=== PATIENT | female | born 1965 | race Caucasian/White ===

== ENCOUNTER → 2016-06-26 | Outpatient (CLI) | payer OTHER ==
[~2016-06-26] MED LIST: ACETAMINOPHEN; FLEXERIL10 MG PO; LISINOPRIL-HCTZ1 T20; METOPROLOL SUC PO; MOTRIN600 MG PO; NAPROSYN500 MG PO; PRAVASTATIN SOD80 MG PO; PROTONIX PO; ZOLOFT PO; [UNRECOGNIZED DRUG - OTHER] PO
--- NOTE | ~2016-06-26 | MY11 ---
[facility] A Service of [facility] RADIOLOGY TEXT RESULTS PATIENT: SANDIP STEWART LOCATION: [facility] : 61 UNIT #: [id number] AGE: [address]: Wild Ramon APRN SEX: F ORDER DR: [id number] [facility]. [place], [place] [address] [id number] O MR#: [id number] Acc #: [id number] NAME: SANDIP STEWART. : 1965 SEX: F STUDY DATE/TIME: 06/26/2016 8:37 UNIT: [facility] ROOM: STUDY DESCRIPTION: MY Mammogram Screening Dig [place] Attending Physician: Wild Ramon A.P.R.N. Ordering Physician: Wild Ramon A.P.R.N. Primary Care Physician: Wild Ramon A.P.R.N. MEDICAL IMAGING REPORT This report is preliminary unless electronic signature is present EXAM Digital screening mammogram with CAD INDICATIONS Routine screening. PROCEDURE Bilateral CC and MLO views obtained on a digital mammography unit FDA-approved CAD device utilized. COMPARISON 02/19/2008 FINDINGS Scattered fibroglandular density. No dominant mass or suspicious calcification. IMPRESSION Negative screening mammogram screen interval 1 year suggested. Patients over the age of 40 are entered into a reminder system with target due date for the next mammogram. A result letter will also be sent to the patient. BIRADS: 1, negative. Dictated by... Mainor Cartagena M.D. THIS IS AN ELECTRONICALLY VERIFIED REPORT Mainor Cartagena M.D. at 07/03/2016 7:08 AM EED/rnr [facility] A Service [facility] RADIOLOGY TEXT RESULTS PATIENT: SANDIP STEWART LOCATION: [facility] : 61 UNIT #: [id number] AGE: [address]: Wild Ramon APRN SEX: F ORDER DR: TD: 07/02/2016 15:01 JOB #: [id number] MEDICAL IMAGING REPORT COPY
== END | disposition home or self-care (01) ==
LOC: CWCC 08:14
DX: Z12.31 Encounter for screening mammogram for malignant neoplasm of breast (principal)
CPT/HCPCS: G0202

== ENCOUNTER → 2016-07-12 | Day surgery (SDC) | payer OTHER ==
--- NOTE | ~2016-07-12 | OR ---
Unit #: [id number] #: [id number] Patient: SANDIP STEWART [id number] [place], [place] [address] [id number] O MR#: [id number] NAME: SANDIP STEWART ROOM: Date of Procedure: 07/12/2016 Admission Date: 07/12/2016 Surgeon: Altaf Acevedo M.D. : 1965 Attending Physician: Altaf Acevedo M.D. Primary Care Physician: Wild Ramon A.P.R.N. OPERATIVE REPORT INDICATIONS FOR PROCEDURE Esophagogastroduodenoscopy with biopsy and colonoscopy with snare polypectomy. INDICATIONS FOR PROCEDURE The patient with significant left upper quadrant pain and also 50-year-old with average risk for colorectal cancer, undergoing colonoscopy and upper endoscopy for evaluation. MEDICATIONS Monitored anesthesia. POSTOPERATIVE FINDINGS 1. Small hiatal hernia. 2. Mild esophagitis. 3. Chronic appearing gastritis, biopsies taken. 4. Normal duodenum and distal duodenum. 5. Polyp, cecum, 1 cm flat, snared piecemeal and sent for histopathology. 6. Polyp, rectosigmoid area, eight, 2 to 4 mm each, snared, and sent for histopathology together. 7. Diverticulosis. 8. Internal hemorrhoids. PLAN Repeat colonoscopy in 3 years. PPI therapy. Avoid NSAIDs. DESCRIPTION OF PROCEDURE The patient was explained of the procedure, risks, and benefits along with risks and benefits of anesthesia. She was brought to the endoscopy room. Propofol anesthesia was given. Bite block was placed. The scope was passed down the mouth into esophagus, stomach, duodenum, and distal duodenum. Biopsies were taken. The scope was gently pulled out. She tolerated it well. At this time, she was turned around and repositioned for colonoscopy. Rectal exam was done, which was normal. Colonoscope was lubricated, passed up the rectum, advanced under direct vision all the way to the cecum. Cecum was identified by ileocecal valve and appendiceal orifice. Flat polyp seen in cecum was removed piecemeal and sent for histopathology. About 8 polyps were seen in rectosigmoid area. They were also snared and sent for histopathology. Diverticulosis also noted. I retroflexed in the rectum, small hemorrhoids seen. Scope was gently Unit #: [id number] #: [id number] Patient: SANDIP STEWART pulled out. She tolerated it well. No major complications were seen. Dictated by... Rey Casey/ross TD: 07/12/2016 22:37 JOB #: [id number] CC: Rubens Faye M.D. OPERATIVE REPORT X Altaf Acevedo MD X PROCEDURE OPERATIVE NOTE
== END | disposition home or self-care (01) ==
LOC: COPS 10:29
DX: K29.50 Unspecified chronic gastritis without bleeding (principal); K21.0 Gastro-esophageal reflux disease with esophagitis; K44.9 Diaphragmatic hernia without obstruction or gangrene; Z12.11 Encounter for screening for malignant neoplasm of colon; D12.0 Benign neoplasm of cecum; K63.5 Polyp of colon; K57.30 Diverticulosis of large intestine without perforation or abscess without bleeding; K64.8 Other hemorrhoids; I10 Essential (primary) hypertension; E78.5 Hyperlipidemia, unspecified; M19.90 Unspecified osteoarthritis, unspecified site; Z79.899 Other long term (current) drug therapy; F32.9 Major depressive disorder, single episode, unspecified; F41.9 Anxiety disorder, unspecified; M54.9 Dorsalgia, unspecified; Z87.891 Personal history of nicotine dependence; Z87.442 Personal history of urinary calculi; Z88.5 Allergy status to narcotic agent
CPT/HCPCS: 88305; 88312; J2250